=== PATIENT | male | born 1970 | race Caucasian/White ===

== ENCOUNTER 2023-01-16 12:53 | Emergency (ER) | payer MEDICAID ==
[~2023-01-16] VITALS: Ht 182.9 cm; Wt 127.0 kg
[2023-01-16] MEDS ORDERED: LORazepam 2 MG/ML VIAL ONE (13:03)
[2023-01-16] MEDS ORDERED: LORazepam 2 MG/ML VIAL IVP ONE (13:05)
[2023-01-16 13:06] VITALS: BP 128/66; PULSE 97; RESP 18; TEMP 97.8; O2SAT 98
[2023-01-16 14:19] LABS: BASOPHILS # (AUTO) 0.1 K/uL (0.00-0.22); BASOPHILS % (AUTO) 1.1 % (0.0-2.0); EOSINOPHILS # (AUTO) 0.2 K/uL (0-0.4); HEMATOCRIT 40.7 % (36-52); LYMPHOCYTES % (AUTO) 14.8 % (20.5-51.1); MEAN CORPUSCULAR HEMOGLOBIN 32 pg (27-31); MEAN CORPUSCULAR HGB CONC 34 g/dL (33-37); MEAN CORPUSCULAR VOLUME 91.4 fL (80-94); MONOCYTES # (AUTO) 0.3 K/uL (0.8-1.0); MONOCYTES % (AUTO) 3.8 % (1.7-9.3); NEUTROPHILS # (AUTO) 5.2 K/uL (1.8-7.7); NEUTROPHILS % (AUTO) 77.3 % (42.2-75.2); PLATELET COUNT (AUTO) 268 K/uL (140-450); RED BLOOD CELL COUNT(AUTO) 4.46 MIL/uL (4.20-6.10); RED CELL DISTRIBUTION WIDTH 12.8 % (11.6-13.7); WHITE BLOOD COUNT (AUTO) 6.7 K/uL (4.8-10.8)
[2023-01-16] MEDS ORDERED: chlordiazePOXIDE 25 MG CAP PO ONE (14:25)
[2023-01-16 14:33] VITALS: O2SAT 99
[2023-01-16] MEDS ORDERED: MAG SULF 2000 MG/WATER PREMIX 50 ML IV ONE (14:35)
[2023-01-16 14:36] LABS: INR 0.95 (0.8-1.2); PARTIAL THROMBOPLASTIN TIME 23.4 secs (22-35.6)
[2023-01-16 14:49] LABS: ALBUMIN 3.3 g/dL (3.4-5.0); ANION GAP 16.9 (8-16); CALCIUM 8.3 mg/dL (8.5-10.1); CREATININE 1.2 mg/dL (0.6-1.3); POTASSIUM 3.9 mmol/L (3.5-5.1); TOTAL BILIRUBIN 0.4 mg/dL (0.0-1.0); TOTAL PROTEIN, SERUM 6.6 g/dL (6.4-8.2)
[2023-01-16] MEDS ORDERED: NACL 0.9% 1,000 ML IV ONE (14:55)
[2023-01-16] MEDS ORDERED: chlordiazePOXIDE 25 MG CAP ONE ×2 (15:28→15:30)
[2023-01-16] MEDS ORDERED: ACETAMINOPHEN 325 MG TAB PO ONE (16:45)
[2023-01-16] MEDS ORDERED: ACET-10509 PO (16:45)
[2023-01-16 19:14] VITALS: BP 126/78; PULSE 88; RESP 16; TEMP 98
== END 2023-01-16 19:19 | disposition home or self-care (01) ==
LOC: MED 12:53
DX: S41.031A Puncture wound without foreign body of right shoulder, initial encounter (principal); R56.9 Unspecified convulsions; E11.9 Type 2 diabetes mellitus without complications; Z79.4 Long term (current) use of insulin; Z79.899 Other long term (current) drug therapy; X58.XXXA Exposure to other specified factors, initial encounter; Y93.89 Activity, other specified; Y92.89 Other specified places as the place of occurrence of the external cause; Y99.8 Other external cause status
CPT/HCPCS: 36415; 70450; 71045; 73030; 80053; 82948; 83880; 84484; 85025; 85610; 85730; 93005; 96361; 96365; 96366; 96375; 99291; G0482; J2060; J3475; J7030; Q0092; 99285